=== PATIENT | female | born 1990 | race Caucasian/White ===

== ENCOUNTER 2022-05-03 01:15 | Emergency (ER) | payer BC ==
[~2022-05-03] VITALS: Ht 121.9 cm; Wt 63.5 kg
[2022-05-03] MEDS ORDERED: PEPCID20 MG PO (08:47)
[2022-05-03] MEDS ORDERED: ONDANSETRON HCL4 MG PO (08:47)
== END 2022-05-03 08:55 | disposition home or self-care (01) ==
LOC: ER 01:15
DX: K29.70 Gastritis, unspecified, without bleeding (principal); R11.2 Nausea with vomiting, unspecified